=== PATIENT | male | born 1960 | race Caucasian/White ===

== ENCOUNTER 2017-06-20 16:34 | Inpatient (IN) | payer BC ==
[~2017-06-20] VITALS: Ht 165.1 cm; Wt 103.0 kg
--- NOTE | 2017-06-20 16:50 | NUR ---
BIB [facility] C/O HEADACHE AND LACERATION TO SCALP S/P FALL OFF LADDER, +LOC AND NECK PAIN. PT PLACED ON C SPINE. NAD NOTED, VSS, RESP EVEN AND UNLABORED. AT BS.
--- NOTE | 2017-06-20 16:59 | NUR ---
PT TO CTSCAN
[2017-06-20] MEDS ORDERED: LIDOCAINE HCL/PF 1% 30 ML VIAL TP ONE (17:00)
[2017-06-20] MEDS ORDERED: LIDOCAINE 2% 20 ML MDV TP ONE (17:30)
--- NOTE | 2017-06-20 18:30 | NUR ---
20G LEFT AC IV STARTED, BLOOD SAMPLE OBTAINED AND SENT TO LAB
[2017-06-20 18:32] LABS: BASOPHILS # (AUTO) 0.2 /CMM (0.0-0.2); BASOPHILS % (AUTO) 1.3 % (0.0-2.0); EOSINOPHILS # (AUTO) 0.2 /CMM (0.0-0.7); EOSINOPHILS % (AUTO) 0.9 % (0.0-6.0); HEMATOCRIT 46 % (39-51); LYMPHOCYTES # (AUTO) 0.6 /CMM (0.8-4.8); LYMPHOCYTES % (AUTO) 3.4 % (20.0-44.0); MEAN CORPUSCULAR HEMOGLOBIN 31 PG (26.0-33.0); MEAN CORPUSCULAR HGB CONC 35 g/dl (31.0-36.0); MEAN CORPUSCULAR VOLUME 89 fL (80-96); MONOCYTES % (AUTO) 5.3 % (2.0-12.0); NEUTROPHILS # (AUTO) 15.9 /CMM (1.8-8.9); NEUTROPHILS % (AUTO) 89.1 % (43.0-81.0); PLATELET COUNT (AUTO) 189 /CMM (150-450); RDW COEFFICIENT OF VARIATION 11.6 (11.5-15.0); RED BLOOD CELL COUNT(AUTO) 5.21 MIL/uL (4.5-6.0); WHITE BLOOD COUNT (AUTO) 17.9 K/uL (4.3-11.0)
[2017-06-20 18:56] LABS: INR 0.91 (0.87-1.13)
[2017-06-20 18:59] LABS: ALBUMIN 4.3 g/dL (3.4-5.0); BILIRUBIN,DIRECT 0.1 mg/dL (0.0-0.2); BILIRUBIN,TOTAL 0.7 mg/dL (0.2-1.0); CALCIUM, SERUM 9.2 mg/dL (8.5-10.1); TOTAL PROTEIN, SERUM 7.4 g/dL (6.4-8.2)
--- NOTE | 2017-06-20 19:01 | NUR ---
CALLED [employer] CONSTRUCTION STONEMASON WAS PAGED.
[2017-06-20 19:02] LABS: TROPONIN I 0.022 ng/mL (0.00-0.056)
--- NOTE | 2017-06-20 19:58 | NUR ---
MEDICAL CODING TECHNICIAN NEW ADMISSION NOTES RECEIVED PATIENT FROM ER VIA GURNEY ACCOMPANIED BY STAFF, A & O X 2-3 WITH REPETITIVE QUESTIONS/FORGETFULNESS. RESP EVEN & NON LABORED, @ RA, SATTING WNL. NO ACUTE DISTRESS NOTED. MILD C/O PAIN TO RIGHT HAND NOTED. IV ACCESS TO LAC, SL, INTACT PATENT. V/S WNL. BODY CHECK DONE PHOTOS TAKEN. FAMILY @ BED SIDE. ALL BELONGINGS ACCOUNTED FOR & DOCUMENTED BY SLIDE FORMING MACHINE OPERATOR. ALL NEEDS ATTENDED & MET. ASSISTED WITH ADL CARE. ON REGULAR DIET. CONTINENT OF B & BM. MIHAI PRICE AWARE ABOUT THE ADMISSION WITH NEW ORDERS. NOTED & CARRIED OUT. BED IN LOW LOCKED POSITION. CALL LIGHT WITHIN REACH. WILL CONTINUE TO OBSERVE.
[2017-06-20 20:00] VITALS: BP 122/80
[2017-06-20] MEDS ORDERED: ACETAMINOPHEN 325 MG TABLET PO PRN (21:00)
[2017-06-20] MEDS ORDERED: IBUPROFEN 600 MG TABLET PO PRN (21:00)
[2017-06-20] MEDS ORDERED: ONDANSETRON HCL/PF 4 MG/2 ML VIAL IVP PRN (21:00)
--- NOTE | 2017-06-20 22:22 | NUR ---
NEW ORDER PT'S RIGHT HAND & WRIST X RAY RESULTS CAME BACK, NOTIFIED ARNOL PRICE, ORDERED RIGHT HAND/WRIST SPLINT. NOTED & CARRIED OUT, TURNTABLE OPERATOR WILL PROVIDE THE SPLINT TO APPLY.
--- NOTE | 2017-06-20 22:22 | NUR ---
X RAY REPORT X RAY REPORT SHOWED NONDISPLACED FX OF RIGHT MID SCAPHOID & FX OF THE WAIST OF THE RIGHT NAVICULAR. JOURNALISTS AND OTHER WRITERS MIHAI PRICE AWARE WITH NEW ORDERS.
[2017-06-20] MEDS: HYDROCODONE/APAP 5/325MG 1 EACH TABLET PO PRN (23:11)
--- NOTE | 2017-06-20 23:12 | NUR ---
PRN MOTRIN & NORCO GIVEN RESEARCH SCHOLAR MIHAI SEEN THE PATIENT, APPLIED THE WRIST SPLINT & ORDERED TO GIVE PRN MOTRIN & NORCO TOGETHER FOR PAIN 7/10 AFTER APPLYING THE SPLINT. WILL REASSESS FOR EFFECTIVENESS & CONTINUING TO MONITOR.
[2017-06-21 06:22] LABS: BASOPHILS % (AUTO) 0.3 % (0.0-2.0); EOSINOPHILS # (AUTO) 0.1 /CMM (0.0-0.7); EOSINOPHILS % (AUTO) 1.8 % (0.0-6.0); HEMATOCRIT 43 % (39-51); HEMOGLOBIN 14.6 g/dL (13.5-17.5); LYMPHOCYTES # (AUTO) 1.2 /CMM (0.8-4.8); LYMPHOCYTES % (AUTO) 15.1 % (20.0-44.0); MEAN CORPUSCULAR HEMOGLOBIN 31 PG (26.0-33.0); MEAN CORPUSCULAR HGB CONC 34 g/dl (31.0-36.0); MEAN CORPUSCULAR VOLUME 90 fL (80-96); MONOCYTES # (AUTO) 0.6 /CMM (0.1-1.30); MONOCYTES % (AUTO) 8.1 % (2.0-12.0); NEUTROPHILS # (AUTO) 5.9 /CMM (1.8-8.9); NEUTROPHILS % (AUTO) 74.7 % (43.0-81.0); PLATELET COUNT (AUTO) 169 /CMM (150-450); RDW COEFFICIENT OF VARIATION 12.6 (11.5-15.0); RED BLOOD CELL COUNT(AUTO) 4.72 MIL/uL (4.5-6.0); WHITE BLOOD COUNT (AUTO) 7.9 K/uL (4.3-11.0)
--- NOTE | 2017-06-21 06:28 | NUR ---
CREDIT UNION FIELD EXAMINER CLOSING NOTES PATIENT SLEPT INTERMITTENTLY @ NIGHT. A & O X 2-3 WITH REPETITIVE QUESTIONS/FORGETFULNESS. RESP EVEN & NON LABORED, SATTING @ RA . NO ACTIVE BLEEDING, NO CHANGE ON LOC NOTED. NO ACUTE DISTRESS NOTED. ON TELE MONITORING WITH SR RATE 80. C/O PAIN TO R HAND/WRIST NOTED, PRN MEDS GIVEN & WAS EFFECTIVE. ICE APPLIED TO AFFECTED AREA. IV ACCESS TO LAC, SL, INTACT PATENT. ASSISTED WITH ADL CARE. ALL NEEDS MET. ON REGULAR DIET. CONTINENT OF B & BM. BED IN LOW LOCKED POSITION. CALL LIGHT WITHIN REACH. WILL ENDORSE TO AM RN FOR CONTINUITY OF CARE.
[2017-06-21 06:41] LABS: ALBUMIN 3.7 g/dL (3.4-5.0); CALCIUM, SERUM 8.8 mg/dL (8.5-10.1); CREATININE 0.9 mg/dL (0.6-1.3); PHOSPHORUS 4.4 mg/dL (2.5-4.9); POTASSIUM 3.6 mmol/L (3.5-5.1); TOTAL PROTEIN, SERUM 6.7 g/dL (6.4-8.2)
[2017-06-21 06:51] LABS: THYROID STIMULATING HORMONE 0.737 uIU/mL (0.358-3.74)
--- NOTE | 2017-06-21 07:15 | NUR ---
RN NOTES PT IS LAYING DOWN IN BED SLEEPING, NO SIGNS OF DISTRESS NOTED. PT ON RA, RESPIRATIONS ARE EVEN AND UNLABORED. IV ON LAC INTACT AND SL. R HAND SPLINT IS IN PLACE. SAFETY MEASURES ARE IN PLACE, CALL LIGHT IS IN REACH. WILL CONTINUE TO MONITOR.
[2017-06-21 08:00] VITALS: BP_SYST 138; BP_SYST 139; BP_DIAS 80
--- NOTE | 2017-06-21 10:28 | NUR ---
WOUND CARE CONSULT: PT PRESENTS WITH DRY ABRASIONS TO FACE AND BODY AND CLOSED LACERATION TO FOREHEAD WITH SUTURES AND STERI STRIPS, PRESENT ON ADMISSION. SPLINT DRESSING NOTED TO RT ARM, LEFT IN PLACE. RECOMMEND SURGICAL CONSULT. PT REFUSED FULL ASSESSMENT OF BACK AND BUTTOCKS. WILL SEE PRN. CURRENT CIARRA SCORE IS 18. MD IN AGREEMENT WITH PLAN OF CARE. Addendum: 06/21/17 at 1030 by ABDI BEARD WNDNU Amended: Links added.
[2017-06-21] MEDS: HYDROCODONE/APAP 5/325MG 1 EACH TABLET PO PRN (14:29)
--- NOTE | 2017-06-21 15:00 | NUR ---
RN NOTES PT WAS DISCHARGED HOME IN STABLE CONDITION, ACCOMPANIED BY HIS . IV AND ID BAND WERE REMOVED. DISCHARGE INSTRUCTIONS WERE GIVEN AND BELONGINGS WERE RETURNED TO PT.
[2017-06-21 16:00] VITALS: BP_SYST 115; BP_SYST 154; BP_DIAS 59; BP_DIAS 86
== END 2017-06-21 19:53 | disposition home or self-care (01) | DRG 103 ==
LOC: ER 16:36 → TELE 20:09 → MED 06-21 08:51
PROVIDERS: ADMIT Nurse Practitioner Acute Care; ATTEND Nurse Practitioner Acute Care
DX: F07.81 Postconcussional syndrome (principal); D72.829 Elevated white blood cell count, unspecified; F43.9 Reaction to severe stress, unspecified; S60.211A Contusion of right wrist, initial encounter; R41.3 Other amnesia; S62.001A Unspecified fracture of navicular [scaphoid] bone of right wrist, initial encounter for closed fracture; S01.112A Laceration without foreign body of left eyelid and periocular area, initial encounter; S60.811A Abrasion of right wrist, initial encounter; W13.2XXA Fall from, out of or through roof, initial encounter; Y92.9 Unspecified place or not applicable; Z98.890 Other specified postprocedural states
CPT/HCPCS: 36415; 70450-TC; 71045-TC; 72125-TC; 72131-TC; 73110; 73130-TC; 80048-TC; 80053-TC; 80061-TC; 80076-TC; 83735-TC; 84100-TC; 84443-TC; 84484-TC; 85025-TC; 85730-TC; 87081-TC; A6403; J3490